=== PATIENT | male | born 1930 | race Caucasian/White ===

== ENCOUNTER 2017-04-06 11:23 | Day surgery (SDC) | payer OTHER ==
[~2017-04-06] VITALS: Ht 182.9 cm; Wt 84.3 kg
[~2017-04-06 11:23] MED LIST: CELEBREX200 MG PO; COUMADIN,JANTOVE2 MG PO; Cinnamon Bark PO; Feosol PO; Glucophage PO; OMEGA 3-6-91200 MG PO; PriLOSEC PO; Proscar PO; SENOKOT S,PE1 TABLET PO; THERAGRAN1 TABLET PO; Vicodin,Norco 5/325 PO; Vitamin D PO; ZESTRIL,PRINIVI10 M1 PO; Zocor PO
[2017-04-06 12:24] LABS: HEMATOCRIT 39.9 % (38.0-50.0); MCH 29.1 PG (29.0-34.0); MCHC 33.6 G/DL (30.0-36.0); MCV 86.7 FL (86-99); MEAN PLAT.VOLUME 8.7 uM^3 (9.0-12.4); PLATELET COUNT 168 K/uL (156-360); RBC DIS.WIDTH-CV 12.9 % (11.8-14.6); RBC DIS.WIDTH-SD 40.8 % (39-53); WHITE BLOOD COUNT 7.2 K/uL (4.1-10.2)
[2017-04-06 12:30] LABS: INTER. NORMALIZED RATIO 1.1; PROTHROMBIN TIME 12.4 SEC (10.2-12.9)
[2017-04-06 12:33] LABS: PTT 30.1 SEC (25-37)
[2017-04-06 12:37] LABS: CHLORIDE 100 mEq/L (99-109); POTASSIUM 3.9 mEq/L (3.7-5.4); SODIUM 135 mEq/L (136-147)
[2017-04-06 12:40] LABS: GLUCOSE 159 mg/dL (70-99)
[2017-04-06 12:41] LABS: ANION GAP 8 MEQ/L (2-14)
[2017-04-06 12:42] LABS: TOTAL BILIRUBIN 0.8 mg/dL (0.0-1.0)
[2017-04-06 12:43] LABS: ALKALINE PHOSPHATASE 65 IU/L (3-129); GFR ESTIMATE (CALCULATED) > 59 mL/min/
[2017-04-06 12:45] LABS: UREA NITROGEN (BUN) 11 mg/dL (9-23)
[2017-04-06 18:01] LABS: POINT-OF-CARE METER ID UU13113675
[2017-04-06 18:45] VITALS: BP 121/75
[2017-04-06 20:07] VITALS: BP 123/75
[2017-04-06 20:17] VITALS: BP 121/68
== END 2017-04-06 20:27 | disposition home or self-care (01) ==
LOC: EME 11:23 → SDC 16:35 → 2EAST 17:31 → ENRESERV 18:09 → 2EAST 20:27
PROVIDERS: Emergency Medicine; Orthopaedic Surgery
PROC: 0SWBXJZ Revision of Synthetic Substitute in Left Hip Joint, External Approach (ICD-10-PCS; principal; 2017-04-06)
DX: T84.021A Dislocation of internal left hip prosthesis, initial encounter (principal); W18.30XA Fall on same level, unspecified, initial encounter; Y79.2 Prosthetic and other implants, materials and accessory orthopedic devices associated with adverse incidents; I10 Essential (primary) hypertension; E11.9 Type 2 diabetes mellitus without complications; Z79.01 Long term (current) use of anticoagulants; Z79.84 Long term (current) use of oral hypoglycemic drugs; Z88.5 Allergy status to narcotic agent; Z87.891 Personal history of nicotine dependence
CPT/HCPCS: 71010; 72170; 73501; 73502; 76000; 80053; 82948; 85027; 85610; 85730; 93005; G0378; J2250; J2270; J2405; J3010

== ENCOUNTER → 2017-06-18 | Outpatient (CLI) | payer OTHER | END | disposition home or self-care (01) | LOC: RAD 11:27 | DX: R91.8 Other nonspecific abnormal finding of lung field (principal); R50.9 Fever, unspecified | CPT/HCPCS: 71046 ==

== ENCOUNTER 2017-08-03 10:25 | Emergency (ER) | payer OTHER ==
[~2017-08-03] VITALS: Ht 182.9 cm; Wt 85.5 kg
[2017-08-03 12:40] LABS: BASOPHIL (%) 0.6 % (0-1); EOSINOPHIL (%) 1.3 % (0-5); EOSINOPHIL COUNT 0.1 K/uL (0-0.3); HEMATOCRIT 35.5 % (38.0-50.0); HEMOGLOBIN 11.9 G/DL (12.5-16.6); IMMATURE GRANULOCYTE (%) 0.3 % (0.0-0.7); LYMPHOCYTE (%) 11.9 % (15-42); LYMPHOCYTE COUNT 0.8 K/uL (1.0-2.8); MCH 29.5 PG (29.0-34.0); MCHC 33.5 G/DL (30.0-36.0); MCV 88.1 FL (86-99); MONOCYTE (%) 6.5 % (3-12); MONOCYTE COUNT 0.4 K/uL (0-0.8); NEUTROPHIL (%) 79.4 % (45-76); NEUTROPHIL COUNT 5.3 K/uL (1.8-6.4); PLATELET COUNT 169 K/uL (156-360); RBC DIS.WIDTH-CV 13.6 % (11.8-14.6); RED BLOOD COUNT 4.03 M/uL (4.00-5.50); WHITE BLOOD COUNT 6.7 K/uL (4.1-10.2)
[2017-08-03 12:51] LABS: INTER. NORMALIZED RATIO 1.1
[2017-08-03 12:53] LABS: PTT 30.9 SEC (25-37)
[2017-08-03 13:05] LABS: TROP-I INTERPRETATION NEGATIVE; TROPONIN-I < 0.01 ng/mL (0.0-0.30)
[2017-08-03 13:12] LABS: CHLORIDE 98 mEq/L (99-109); SODIUM 133 mEq/L (136-147)
[2017-08-03 13:14] LABS: GLUCOSE 101 mg/dL (70-99)
[2017-08-03 13:18] LABS: CREATININE 0.8 mg/dL (0.6-1.3); GFR ESTIMATE (CALCULATED) > 59 mL/min/ (58.99-99999)
[2017-08-03 13:19] LABS: UREA NITROGEN (BUN) 16 mg/dL (9-23)
[2017-08-03 15:56] VITALS: BP 134/66
== END 2017-08-03 16:02 | disposition home or self-care (01) ==
LOC: EME 10:25
PROVIDERS: Emergency Medicine
PROC: 0SSBXZZ Reposition Left Hip Joint, External Approach (ICD-10-PCS; principal; 2017-08-03)
DX: S73.005A Unspecified dislocation of left hip, initial encounter (principal); W01.0XXA Fall on same level from slipping, tripping and stumbling without subsequent striking against object, initial encounter; R00.1 Bradycardia, unspecified; E11.9 Type 2 diabetes mellitus without complications; I10 Essential (primary) hypertension; Z79.891 Long term (current) use of opiate analgesic; Z79.01 Long term (current) use of anticoagulants; Z79.84 Long term (current) use of oral hypoglycemic drugs; Z87.891 Personal history of nicotine dependence; Z96.642 Presence of left artificial hip joint; Z85.9 Personal history of malignant neoplasm, unspecified; Z88.5 Allergy status to narcotic agent
CPT/HCPCS: 73501; 73502; 80048; 84484; 85025; 85610; 85730; 93005; 99281; 99284; J7030